=== PATIENT | female | born 1965 | race Caucasian/White ===

== ENCOUNTER → 2017-02-25 | Outpatient (CLI) | payer BC ==
--- NOTE | 2017-02-25 15:21 | MAMMOGRAPHY REPORT ---
BILATERAL DIGITAL SCREENING MAMMOGRAM TOMOSYNTHESIS WITH CAD: 02/25/2017 CLINICAL HISTORY: Routine screening. Patient has no complaints. TECHNIQUE: Breast tomosynthesis in addition to standard 2D mammography was performed. Current study was also evaluated with a Computer Aided Detection (CAD) system. COMPARISON: Comparison is made to exams dated: 07/18/2015 mammogram, 01/03/2015 ultrasound, 01/03/2015 m ammogram, 07/05/2014 mammogram, 06/07/2013 ultrasound, and 06/07/2013 ultrasound - [facility]. BREAST COMPOSITION: The tissue of both breasts is heterogeneously dense, which may obscure small mas ses. FINDINGS: There are stable benign circumscribed masses in the lateral right breast. Scattered benign rim calcifications and grouped round and punctate microcalcifications diffusely throughout each [address]. No new suspicious mass, architectural distortion or cluster of suspicious microcalcifications is seen. IMPRESSION: ACR BI-RADS CATEGORY 1: NEGATIVE There is no mammographic evidence of malignancy. A 1 year screening mammogram is recommended. The pa tient will receive written notification of the results. Approximately 10% of breast cancers are not detected with mammography. A negative mammographic report should not delay biopsy if a clinically suggestive mass is present. Mabel Vance M.D. ay/:02/25/2017 14:23:15 Infectious Waste Technician: Jacque Ortega, [facility] letter sent: Normal 1/2 BI-RADS Code: ACR BI-RADS Category 1: Negative
== END | disposition home or self-care (01) ==
LOC: C.MAMM 07:33
PROVIDERS: ATTEND Nurse Practitioner
DX: Z12.31 Encounter for screening mammogram for malignant neoplasm of breast (principal)

== ENCOUNTER → 2017-06-27 | Outpatient (CLI) | payer OTHER | END | disposition home or self-care (01) | LOC: C.PAPS 15:23 | PROVIDERS: ATTEND Obstetrics & Gynecology | DX: Z12.4 Encounter for screening for malignant neoplasm of cervix (principal) ==

== ENCOUNTER 2017-09-29 04:14 | Emergency (ER) | payer OTHER ==
[~2017-09-29] VITALS: Ht 162.6 cm; Wt 69.6 kg
[2017-09-29 04:18] VITALS: TEMP 36.7; Ht 162.6 cm; Wt 69.6 kg
[2017-09-29] MEDS ORDERED: ALBUT/IPRATROP 3MG/0.5MG NEB 3 ML VIAL INH ONE (04:45)
[2017-09-29] MEDS ORDERED: SODIUM CHLORIDE 0.9% 1000ML 1,000 ML IV ONE (04:45)
[2017-09-29] MEDS ORDERED: DEXAMETHASONE **PF** INJ 10 MG/ML VIAL IV ONE (04:45)
[2017-09-29] MEDS ORDERED: CETI10TA10 PO (04:57)
[2017-09-29] MEDS ORDERED: VNTHFA/IN INH (04:57)
[2017-09-29] MEDS ORDERED: MONT1TAB3 PO (04:57)
[2017-09-29] MEDS ORDERED: B-COTAB18 PO (04:57)
[2017-09-29 05:06] LABS: HEMOGLOBIN 12.7 g/dL (12.0-16.0); MEAN CELL VOLUME 87.7 fL (80-100); MEAN CORPUSCULAR HEMOGLOBIN 30.1 pg (25-34); MEAN CORPUSCULAR HGB CONC 34.3 g/dl (32-36); PLATELET COUNT 240 K/uL (130-400); RED CELL DISTRIBUTION WIDTH CV 12.7 % (11.5-14.5); RED CELL DISTRIBUTION WIDTH SD 40.7 fL (36.4-46.3); WHITE BLOOD COUNT 6.67 K/uL (4.8-10.8)
[2017-09-29 05:09] VITALS: O2SAT 100
[2017-09-29] MEDS ORDERED: TOPI25TA10 PO (05:09)
[2017-09-29] MEDS ORDERED: RIZA10TA18 PO (05:09)
[2017-09-29] MEDS ORDERED: TOPI25TA55 PO (05:09)
[2017-09-29 05:26] LABS: BASO % 0.3 %; BASO ABS # 0.02 K/uL (0-0.2); EOS % 1.2 %; EOS ABS # 0.08 K/uL (0-0.5); IG# 0.01 K/uL (0.00-0.02); LYMPH % 50.8 %; LYMPH ABS # 3.39 K/uL (1.2-3.4); MONO % 6.3 %; MONO ABS # 0.42 K/uL (0.11-0.59); NEUT % 41.3 %; NEUT ABS # 2.75 K/uL (1.4-6.5)
[2017-09-29 05:39] LABS: ALBUMIN 3.3 gm/dl (3.4-5.0); CALCIUM 8.7 mg/dl (8.5-10.1); CREATININE 0.89 mg/dl (0.60-1.20); POTASSIUM 3.6 mmol/L (3.5-5.1); TOTAL PROTEIN 7.1 gm/dl (6.4-8.2)
[2017-09-29 06:28] VITALS: BP 109/60; PULSE 63; O2SAT 98
[2017-09-29] MEDS ORDERED: METH4PAK PO (06:28)
--- NOTE | 2017-09-29 08:29 | DIAGNOSTIC IMAGING REPORT ---
CHEST 2 VIEWS ROUTINE CLINICAL HISTORY: 52 years-old Female presenting with SOB, asthma. TECHNIQUE: PA and lateral views of the chest were obtained. COMPARISON: None. FINDINGS: Cardiomediastinal silhouette normal. Lungs and pleural spaces clear. Osseous structures normal. Cholecystectomy clips noted. IMPRESSION: 1. No acute cardiopulmonary disease. Electronically signed by: William Yusuf M.D. 09/29/2017 8:28 AM Dictated Date/Time: 09/29/2017 7:44 AM
--- NOTE | 2017-09-30 22:19 | EMERGENCY ROOM VISIT NOTE ---
History First contact with patient: 04:22 Chief Complaint: SHORTNESS OF BREATH Stated Complaint: SHORTNESS OF BREATH Nursing Triage Summary: Patient reports post nasal drip, seasonal allergies, and hx asthma. Patient has been using rescue inhaler more frequently lately. Patient also states "I have been eating a lot of peanut butter lately and I don't know if it's an allergy to peanuts." History of Present Illness The patient is a 52 year old female who presents to the Emergency Room with complaints of history of asthma that has been with increased frequency in the past week. The patient states that she has been using her inhaler more frequently, which has been helping her symptoms. Tonight she ate peanut butter , and shortly thereafter began having a worsening asthma attack. She is not having swelling of her face or lips. She eats peanut butter on a regular basis and has never had a reaction to this. The patient is without coughing, wheezing , or abdominal pain. No nausea or vomiting. She does not have a rash. Her primary complaint is that she feels like she is having difficulty breathing. She rates her overall discomfort a 7/10. She has not taken anything for relief of symptoms tonight. Review of Systems More than 10 systems were reviewed and otherwise negative with the exception of history of present illness. Past Medical/Surgical History History of asthma Social History Smoking Status: Never Smoker Housing Status: lives with family Current/Historical Medications Scheduled B-Complex Vitamins (Vitamin B Complex), 1 TAB PO DAILY Cetirizine Hcl (Zyrtec), 10 MG PO DAILY Methylprednisolone (Medrol Dosepak), 1 PKT PO DAILY Montelukast Sodium (Singulair), 10 MG PO DAILY Topiramate (Topamax), 12.5 MG PO QAM Topiramate (Topamax), 25 MG PO QPM Scheduled PRN Albuterol Hfa (Ventolin Hfa), 2 PUFFS INH Q4H PRN for SOB/Wheezing Rizatriptan Benzoate (Maxalt), 10 MG PO DIRECTED PRN for Migraine Physical Exam Vital Signs Date Time Temp Pulse Resp B/P (MAP) Pulse Ox O2 Delivery O2 Flow Rate FiO2 09/29/17 06:28 63 18 109/60 98 Room Air 09/29/17 05:09 100 Room Air 09/29/17 04:18 36.7 61 18 133/73 100 Room Air Physical Exam VITALS: Vitals are noted on the nurse's note and reviewed by myself. Vital signs stable. GENERAL: Well-developed, well-nourished, white female, who is in no acute distress and resting comfortably. Patient is cooperative with the examination. HEAD: Normocephalic atraumatic. EARS: External ear normal. External auditory canals clear, tympanic membranes pearly sosa without erythema or effusion bilaterally. EYES: Pupils equal round and reactive to light and accommodation. Conjunctivae without injection, sclerae without icterus. Extraocular movements intact. NOSE: Patent, turbinates without inflammation or discharge. MOUTH: Mucous membranes moist. Tonsils are not enlarged. Pharynx without erythema, blood, or exudate. Uvula midline. Airway patent. NECK: Supple without nuchal rigidity. No lymphadenopathy. No thyromegaly. Cervical spine is nontender. HEART: Regular rate and rhythm without murmurs gallops or rubs. LUNGS: Clear to auscultation bilaterally without wheezes, rales or rhonchi. No retractions or accessory muscle use. Medical Decision & Procedures ER Provider Diagnostic Interpretation: CHEST 2 VIEWS ROUTINE CLINICAL HISTORY: 52 years-old Female presenting with SOB, asthma. TECHNIQUE: PA and lateral views of the chest were obtained. COMPARISON: None. FINDINGS: Cardiomediastinal silhouette normal. Lungs and pleural spaces clear. Osseous structures normal. Cholecystectomy clips noted. IMPRESSION: 1. No acute cardiopulmonary disease. Laboratory Results 09/29/17 04:58 Red Blood Count 4.22, Mean Corpuscular Volume 87.7, Mean Corpuscular Hemoglobin 30.1, Mean Corpuscular Hemoglobin Concent 34.3, Mean Platelet Volume 9.0, Neutrophils (%) (Auto) 41.3, Lymphocytes (%) (Auto) 50.8, Monocytes (%) (Auto) 6.3, Eosinophils (%) (Auto) 1.2, Basophils (%) (Auto) 0.3, Neutrophils # (Auto) 2.75, Lymphocytes # (Auto) 3.39, Monocytes # (Auto) 0.42, Eosinophils # (Auto) 0.08, Basophils # (Auto) 0.02 09/29/17 04:58 Test 09/29/17 04:58 09/29/17 05:06 White Blood Count 6.67 K/uL (4.8-10.8) Red Blood Count 4.22 M/uL (4.2-5.4) Hemoglobin 12.7 g/dL (12.0-16.0) Hematocrit 37.0 % (37-47) Mean Corpuscular Volume 87.7 fL (80-100) Mean Corpuscular Hemoglobin 30.1 pg (25-34) Mean Corpuscular Hemoglobin Concent 34.3 g/dl (32-36) Platelet Count 240 K/uL (130-400) Mean Platelet Volume 9.0 fL (7.4-10.4) Neutrophils (%) (Auto) 41.3 % Lymphocytes (%) (Auto) 50.8 % Monocytes (%) (Auto) 6.3 % Eosinophils (%) (Auto) 1.2 % Basophils (%) (Auto) 0.3 % Neutrophils # (Auto) 2.75 K/uL (1.4-6.5) Lymphocytes # (Auto) 3.39 K/uL (1.2-3.4) Monocytes # (Auto) 0.42 K/uL (0.11-0.59) Eosinophils # (Auto) 0.08 K/uL (0-0.5) Basophils # (Auto) 0.02 K/uL (0-0.2) RDW Standard Deviation 40.7 fL (36.4-46.3) RDW Coefficient of Variation 12.7 % (11.5-14.5) Immature Granulocyte % (Auto) 0.1 % Immature Granulocyte # (Auto) 0.01 K/uL (0.00-0.02) Red Blood Cell Morphology Unremarkable Anion Gap 5.0 mmol/L (3-11) Est Creatinine Clear Calc Drug Dose 70.8 ml/min Estimated GFR () 86.4 Estimated GFR (Non- 74.5 BUN/Creatinine Ratio 15.5 (10-20) Calcium Level 8.7 mg/dl (8.5-10.1) Total Bilirubin 0.3 mg/dl (0.2-1) Aspartate Amino Transf (AST/SGOT) 28 U/L (15-37) Alanine Aminotransferase (ALT/SGPT) 32 U/L (12-78) Alkaline Phosphatase 44 U/L (45-117) Total Protein 7.1 gm/dl (6.4-8.2) Albumin 3.3 gm/dl (3.4-5.0) Globulin 3.8 gm/dl (2.5-4.0) Albumin/Globulin Ratio 0.9 (0.9-2) Lipase 187 U/L (73-393) Thyroid Stimulating Hormone (TSH) 3.770 uIu/ml (0.300-4.500) Bedside Troponin I < 0.030 ng/ml (0-0.045) Medications Administered Medications (Trade) Dose Ordered Sig/Kaylee Route Start Time Stop Time Status Last Admin Dose Admin Sodium Chloride 1,000 ml @ 999 mls/hr Q1H1M ONCE IV 09/29/17 04:45 09/29/17 05:45 DC 09/29/17 05:03 999 MLS/HR Dexamethasone Sodium Phosphate (Dexamethasone Inj Pf) 10 mg NOW ONCE IV 09/29/17 04:45 09/29/17 04:46 DC 09/29/17 05:02 10 MG Albuterol/ Ipratropium (Duoneb) 3 ml NOW ONCE INH 09/29/17 04:45 09/29/17 04:46 DC 09/29/17 05:03 3 ML ECG Per My Interpretation Change: Sinus bradycardia @55bpm Otherwise normal ECG No previous ECGs available ED Course Physical exam and history were performed. Nursing notes, EMR, and Medication List were personally reviewed. Patient appears to have shortness of breath symptoms for the past 1 hour. The patient has a history of asthma and believes this feels similar. She is not having chest pain. Her EKG is as above and is without ST elevation or evidence of ischemia. IV access was established and labs were obtained. Chest x-ray was performed. The patient reports that she does not tolerate prednisone well, and was given IV Decadron and a breathing treatment. The patient's blood work is as above and was reviewed. She does not have a significantly elevated white blood cell count, gross anemia, bandemia, or significant electrolyte imbalance. Troponin 1 is negative. Her other labs are fairly unremarkable. Chest x-ray was reviewed by myself and radiology showing no acute process. She remained in normal sinus rhythm on the cardiac cath technician. On reevaluation the patient had significant improvement of her discomfort. Her symptoms nearly completely resolved with the steroids and breathing treatment. The patient does have inhalers at home and was asked to continue this. I will trial her on a Medrol Dosepak as I suspect that her symptoms are most related to an asthma exacerbation and not a true allergic reaction. She may tolerate this better than straight prednisone as well. The patient was asked to follow with her primary care physician in the next 1-2 days for recheck. She was certainly invited back to the ER with any new, worsening, or concerning symptoms. The chart was completed utilizing [employer] Speech Voice Recognition Software. Grammatical errors, random word insertions, pronoun errors, and incomplete sentences are an occasional consequence of this system due to software limitations, ambient noise, and hardware issues. Any formal questions or concerns about the content, text, or information contained within the body of this dictation should be directly addressed to the provider for clarification. . Medical Decision Differential diagnosis: Etiologies such as infections, reactive airway disease, pneumonia, pneumothorax , COPD, CHF, cardiac ischemia, pulmonary embolism, musculoskeletal, gastrointestinal, as well as others were entertained. Impression Primary Impression: Shortness of breath Departure Information Dispostion Home / Self-Care Condition FAIR Prescriptions Methylprednisolone (MEDROL DOSEPAK) 4 Mg Nahid 1 PKT PO DAILY, #1 PKT Prov: Lauro Murillo PA-C 09/29/17 Forms HOME CARE DOCUMENTATION FORM, IMPORTANT VISIT INFORMATION Patient Instructions My [facility] Additional Instructions You were seen and evaluated today on an emergency basis only. This is not a substitute for, or an effort to provide, complete comprehensive medical care. It is not possible to recognize and treat all injuries or illnesses in a single emergency department visit. For this reason it is recommended that you followup with your primary care physician later this week for recheck of your symptoms. Take a Medrol Dosepak as prescribed. Continue your inhalers at home. You are welcome to return to the emergency department anytime with new, worsening, or concerning symptoms.
== END 2017-09-29 06:35 | disposition home or self-care (01) ==
LOC: C.EDB 04:16 → C.EDA 06:35
DX: R06.02 Shortness of breath (principal); J45.909 Unspecified asthma, uncomplicated; Z79.899 Other long term (current) drug therapy